=== PATIENT | female | born 2000 | race Two or more races ===

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

== ENCOUNTER 2021-10-20 11:01 | Outpatient (CLI) | payer OTHER ==
[~2021-10-20] VITALS: Ht 185.4 cm; Wt 95.5 kg
[~2021-10-20 11:01] MED LIST changes: +ACETAMINOPHEN TAB 650MG DOSE (2X325MG) PO ONE; +ALBUTEROL SULFATE 2.5 MG/0.5 ML INH NEB SOLN INH PRN; +EPINEPHrine INJ 1 MG/ML 1ML AMP IM PRN; +IRON SUCROSE 200 MG in NS 100 ML OVER 1 HR IV ONE; +NICO21PAT TD; +NS 1,000 ML IV SCH; +diphenhydrAMINE 50MG/ML VIAL (J1200) IV PRN; +methylPREDNISolone 125MG 2ML VIAL IV PRN
[2021-10-20 11:10] VITALS: BP 144/67
[2021-10-20] MEDS ORDERED: BIRTH CONTROL PO (11:38)
[2021-10-20] MEDS ORDERED: PRENTAB53 PO (11:39)
[2021-10-20 12:30] VITALS: BP 131/79
[2021-10-20 13:30] VITALS: BP 134/77
== END 2021-10-20 13:30 | disposition home or self-care (01) ==
LOC: M INFU 11:01
PROVIDERS: ATTEND Student in an Organized Health Care Education/Training Program
DX: D50.8 Other iron deficiency anemias (principal)
CPT/HCPCS: 96365; J1756

== ENCOUNTER 2021-10-27 07:58 | Outpatient (CLI) | payer OTHER ==
[~2021-10-27] VITALS: Ht 185.4 cm; Wt 96.0 kg
[~2021-10-27 07:58] MED LIST changes: -ACETAMINOPHEN TAB 650MG DOSE (2X325MG) PO ONE; +BIRTH CONTROL PO; -IRON SUCROSE 200 MG in NS 100 ML OVER 1 HR IV ONE; -NS 1,000 ML IV SCH; +PRENTAB53 PO
[2021-10-27] MEDS ORDERED: IRON SUCROSE 200 MG in NS 100 ML OVER 1 HR IV ONE (08:00)
[2021-10-27] MEDS ORDERED: ACETAMINOPHEN TAB 650MG DOSE (2X325MG) PO ONE (08:00)
[2021-10-27] MEDS ORDERED: NS 1,000 ML IV SCH (08:00)
[2021-10-27 08:20] VITALS: BP 140/63
[2021-10-27 10:10] VITALS: BP 127/69
== END 2021-10-27 10:10 | disposition home or self-care (01) ==
LOC: M INFU 07:58
PROVIDERS: ATTEND Student in an Organized Health Care Education/Training Program
DX: D50.8 Other iron deficiency anemias (principal)
CPT/HCPCS: 96365; J1756

== ENCOUNTER 2021-11-03 08:55 | Outpatient (CLI) | payer OTHER ==
[~2021-11-03] VITALS: Ht 185.4 cm; Wt 95.4 kg
[~2021-11-03 08:55] MED LIST changes: -ALBUTEROL SULFATE 2.5 MG/0.5 ML INH NEB SOLN INH PRN; -EPINEPHrine INJ 1 MG/ML 1ML AMP IM PRN; -diphenhydrAMINE 50MG/ML VIAL (J1200) IV PRN; -methylPREDNISolone 125MG 2ML VIAL IV PRN
[2021-11-03 09:00] VITALS: BP 136/81
[2021-11-03] MEDS ORDERED: methylPREDNISolone 125MG 2ML VIAL IV PRN (09:00)
[2021-11-03] MEDS ORDERED: ACETAMINOPHEN TAB 650MG DOSE (2X325MG) PO ONE (09:00)
[2021-11-03] MEDS ORDERED: ALBUTEROL SULFATE 2.5 MG/0.5 ML INH NEB SOLN INH PRN (09:00)
[2021-11-03] MEDS ORDERED: EPINEPHrine INJ 1 MG/ML 1ML AMP IM PRN (09:00)
[2021-11-03] MEDS ORDERED: IRON SUCROSE 200 MG in NS 100 ML OVER 1 HR IV ONE (09:00)
[2021-11-03] MEDS ORDERED: NS 1,000 ML IV SCH (09:00)
[2021-11-03] MEDS ORDERED: diphenhydrAMINE 50MG/ML VIAL (J1200) IV PRN (09:00)
[2021-11-03 10:24] VITALS: BP 139/67
== END 2021-11-03 10:25 | disposition home or self-care (01) ==
LOC: M INFU 08:55
PROVIDERS: ATTEND Student in an Organized Health Care Education/Training Program
DX: D50.8 Other iron deficiency anemias (principal)
CPT/HCPCS: 96365; J1756

== ENCOUNTER 2021-11-10 08:40 | Outpatient (CLI) | payer OTHER ==
[~2021-11-10] VITALS: Ht 185.4 cm; Wt 96.0 kg
[2021-11-10 08:40] VITALS: BP 134/73
[~2021-11-10 08:40] MED LIST changes: +ACETAMINOPHEN TAB 650MG DOSE (2X325MG) PO ONE; +ALBUTEROL SULFATE 2.5 MG/0.5 ML INH NEB SOLN INH PRN; +EPINEPHrine INJ 1 MG/ML 1ML AMP IM PRN; +IRON SUCROSE 200 MG in NS 100 ML OVER 1 HR IV ONE; +NS 1,000 ML IV SCH; +diphenhydrAMINE 50MG/ML VIAL (J1200) IV PRN; +methylPREDNISolone 125MG 2ML VIAL IV PRN
[2021-11-10 10:13] VITALS: BP 135/82
== END 2021-11-10 10:15 | disposition home or self-care (01) ==
LOC: M INFU 08:40
PROVIDERS: ATTEND Student in an Organized Health Care Education/Training Program
DX: D50.8 Other iron deficiency anemias (principal)
CPT/HCPCS: 96365; J1756

== ENCOUNTER 2021-11-17 08:35 | Outpatient (CLI) | payer OTHER ==
[~2021-11-17] VITALS: Ht 185.4 cm; Wt 95.4 kg
[2021-11-17 08:35] VITALS: BP 143/83
[2021-11-17 09:59] VITALS: BP 130/69
== END 2021-11-17 10:00 | disposition home or self-care (01) ==
LOC: M INFU 08:35
PROVIDERS: ATTEND Student in an Organized Health Care Education/Training Program
DX: D50.8 Other iron deficiency anemias (principal)
CPT/HCPCS: 96365; J1756